=== PATIENT | female | born 1995 | race Native Hawaiian/Other Pacific Islander ===

== ENCOUNTER 2018-08-30 07:46 | Outpatient (CLI) | payer BC | END 2018-08-30 20:09 | disposition home or self-care (01) | LOC: LABW 07:46 | DX: O30.032 Twin pregnancy, monochorionic/diamniotic, second trimester (principal) | CPT/HCPCS: 36415; 82951 ==

== ENCOUNTER 2020-12-31 15:53 | Outpatient (CLI) | payer OTHER | END 2020-12-31 23:11 | disposition home or self-care (01) | LOC: INF 15:53 | PROVIDERS: ATTEND Internal Medicine | DX: Z23 Encounter for immunization (principal) | CPT/HCPCS: 96372 ==

== ENCOUNTER 2021-01-22 15:55 | Outpatient (CLI) | payer OTHER | END 2021-01-22 19:59 | disposition home or self-care (01) | LOC: INF 15:55 | PROVIDERS: ATTEND Internal Medicine | DX: Z23 Encounter for immunization (principal) | CPT/HCPCS: 96372 ==

== ENCOUNTER 2022-12-14 08:15 | Outpatient (CLI) | payer OTHER | END 2022-12-14 19:24 | disposition home or self-care (01) | LOC: US 08:15 | PROVIDERS: ATTEND Nurse Practitioner Family | DX: R74.8 Abnormal levels of other serum enzymes (principal) ==